=== PATIENT | female | born 2000 | race Caucasian/White ===

== ENCOUNTER 2024-12-30 06:48 | Outpatient (REF) | payer OTHER, SELFPAY ==
--- OUTSIDE RECORDS SUMMARY | 2021-09-13 06:20 | XMS_ITS | Continuity of Care Document ---
Author Organization [facility] Address [address] [place] [phone] Phone Care Team Providers Care Sales Representative Publications Name Role Phone Armando Soriano MD Unavailable Unavailable Allergies, Adverse Reactions, Alerts Substance Reaction Status Criticality No Known Allergies Active No Inform ation Medications Medication Instructions Dosage Effective Dates (start - stop) Status Comments Lotemax SM 0.38 % eye gel drops instill 1 drop by ophthalmic route 3 times every day for 2 weeks into the affected eye - Active AMELIA 1. use coupon neomycin-polymyxin -dexameth 3.5 mg/mL-10,000 unit/mL-0.1% eye drops - Active GenTeal Tears Moderate 0.1 %-0.3 %-0.2 % eye drops - Active Procedures Procedure Date Intermediate eye exam, established [facility] Intermediate eye exam, established [facility] Advance Directives Directive Yes / No Effective Date File Name No Information Encounters Encounter Description Practice Location Reason(s) For Visit Diagnoses Date Provider Providers Copied on Encounter [facility], [address] [place] [address], [id number], [place] tel:[phone] [facility] Dry Eye f/u (chief complaint) Dry Eye - Bilateral 2 Bo Roberts. [facility], [facility], [address] [place] [address], [id number], [place]. tel:[phone] [facility], [address] [facility], [place], [place], [id number], [place] tel:[phone] [facility] dry eye (chief complaint) Dry Eye - Bilateral 2 Soriano Armando. [facility], [facility], [address] [facility], [place], [place], [id number], [place]. tel:[phone] Family History Family Member Type Diagnosis Age At Onset Maternal grandfather Problem (finding) degenerative di sorder of macula Maternal grandmother Problem (finding) degenerative di sorder of macula Maternal grandfather Problem (finding) glaucoma Maternal grandmother Problem (finding) glaucoma Payers Payer name Insurance type Covered alliance party ID Authoriza precious(s) Gabriel POS BL [id number] Social History Type Description Quantity Date Captured Comments Alcohol Use Details Unknown Caffeine Use Details Unknown Tobacco Use Status No Information Smoking Status No Information Sex Female Chief Complaint And Reason For Visit From encounter dated '09/13/2021 10:20'. Dry Eye f/u (chief complaint). Description: The 21 year old female presents for evaluation of Dry Eye f/u in the right eye and left eye. It started about 2 day(s) ago. It occurs persistently. The onset was progressive. It affects OU. The symptom is constant. The condition is moderate. Patient denies flashes and floaters.3 week dry eye f/u OU. Eyes are feeling much better on current drop regimen:Drop regimen:Lotemax 1 x qd OU - feels they make her eyes more drySystane Complete PF - only uses prn, stings Genteal gtts (not PF) - 2-3 x daily OU Reason For Referral Reason For Referral No Information History Of Present Illness Encounter Date Complaint History Of Prese nt Illness Dry Eye f/u The 21 year old female presents for evaluation of Dry Eye f/u in the right eye and left eye. It started about 2 day(s) ago. It occurs persistently. The onset was progressive. It affects OU. The symptom is constant. The condition is moderate. Patient denies flashes and floaters.3 week dry eye f/u OU. Eyes are feeling much better on current drop regimen:Drop regimen:Lotemax 1 x qd OU - feels they make her eyes more drySystane Complete PF - only uses prn, stings Genteal gtts (not PF) - 2-3 x daily OU dry eye The 21 year old female presents for evaluation of dry eye in the right eye and left eye. It started about 1 It occurs with no pattern. The onset was gradual. It affects OU. The symptom is frequent. The condition is moderate. The condition is described as blurring.Pt saw Dr. Zambrano one week ago for routine eye exam, Dr. Zambrano said that her eyes were too dry to do an exam. Pt used neomycin OU QID for 5 days, Dr. Zambrano had her start systane complete OU QID, pt said they made her eyes burn and she switched to genteal moderate OU QID, pt says new ATs help. Pt says she had redness and irritation OS for a few days before seeing Dr. Zambrano. Pt has no h/o dry eye syndrome. Pt wears glasses, used to wear contacts but has not for several years. C/o some blurry vision. Functional Status Date Functional Assessmen t No Information Instructions Date Instruction Additional Infor mation Impression/Plan Related to Dry E ye - Bilateral Impression/Plan Related to Dry E ye - Bilateral Assessments Type Assessment Date assessment Dry Eye - Bilateral impression Dry eye didn't like lotemax, using systane complete pres free still longoria a little bitDiscussed plugs Patient Care Teams Name Effective Dates (start - stop) Status Members No Information
--- NOTE | ~2024-12-30 | US_ITS ---
EXAMINATION: US PELVIS CLINICAL INFORMATION: Right-sided pelvic pain x 2 months COMPARISON: None available. TECHNIQUE: Ultrasound of the pelvis is performed using both transabdominal and transvaginal transducers along with Doppler. Transvaginal imaging was attempted but painful hence not performed. FINDINGS: Uterus: The uterus is anteverted, anteflexed and measures 7.3 x 3.7 x 5.9 cm. The double wall endometrial thickness is 1.2 cm. The uterus is smooth in contour and has normal myometrial echogenicity. No visible fibroid. Adnexa: Both ovaries are visualized. There is normal color flow to the adnexa. There is no ovarian torsion. There is no pelvic ascites or fluid collection. Right ovary measures 3.7 x 2.7 x 3.0 cm. Volume 15.7 mL. There is simple anechoic cyst measuring 2.1 x 1.8 x 2.4 cm Left ovary measures 2.4 x 1.7 x 2.2 cm. Volume 4.7 mL US/US pelvic complete IMPRESSION: Unremarkable uterus. Simple cyst right ovary. Electronically signed by: Raymundo Antonio MD 12/30/2024 09:11 AM EDT
--- OUTSIDE RECORDS SUMMARY | 2024-12-30 07:01 | XMS_ITS | Clinical Summary ---
Author Organization [facility] Address [address] [facility] [address] [place] [phone] Phone Care Team Providers Care Lithopress Operator Name Role Phone Pcp, Unknown Primary Care Provider Unavailabl e Encounters Date Type Department Care Team Description 11/10/2024 Transcribe Orders [facility] [address] [place] [phone] Marta Pascual MD Encounter for rehabilitation (Primary Dx) from Last 3 Months Social History Tobacco Use Types Packs/Day Years Used Date Smoking Tobacco: Never Assessed Education Answer Date Recorded Are you interested in more education? Not on wesley e 11/11/2024 Are you concerned about learning? Not on file 11/11/2024 No 11/11/2024 No 11/11/2024 Digital Access Answer Date Recorded No 11/11/2024 No 11/11/2024 Reliable internet access at home? Not on file 11/11/2024 Device with a working camera? Not on file Comments Unknown Sex and Gender Information Value Date Recorded Sex Assigned at Not on file Legal Sex Female 4:00 PM EDT Gender Identity Not on file Sexual Orientation Not on file Plan of Treatment Health Maintenance Due Date Last Done Comments Adult Td,Tdap Booster 2002 DEPRESSION SCREENING 2014 SMOKING Hx and SMOKELESS TOB ACCO SCREENING 2015 HPV VACCINES (1 - 3-dose series) 2017 CHLAMYDIA SCREENING 2018 MENINGOCOCCAL VACCINES (B) ( 1 of 2 - Standard) 2018 HEPATITIS C SCREENING 2020 HIV ONE-TIME SCREENING (18-6 5 YEARS) 2020 PAP SMEAR 2023 INFLUENZA VACCINE (#1) 2024 COVID-19 VACCINE (2024-2 6 season) 2024 HEPATITIS A VACCINES Aged Out No long er eligible based on patient's age to complete this topic HIB VACCINES Aged Out No longer eligi ble based on patient's age to complete this topic MENINGOCOCCAL VACCINES (ACWY) Aged Out No longer eligible based on patient's age to complete this topic PNEUMOCOCCAL VACCINES (0-49 years) Aged Out No longer eligible based on patient's age to complete this topic Medical Devices Not on file Insurance [facility] Member Subscriber Plan / Payer ( fective 2024-Present) Name:Deanna, Kaalvin Member ID:[id number] Relation to Subscriber:Self Name:Deanna Jewelalvin Subscriber ID:[id number] Payer ID:[id number] (NAIC) Group ID:Not on file Type:PPO Address: [facility] [id number] [place] [id number] [facility] [employer] C[employer]NA WELL[employer] CIGNA WELLF[employer]ET KAVON ACE Care Teams Lithopress Operator Relationship Specialty Start Date End Date Pcp, Unknown PCP - General 11/10/24 Additional Source Comments The information contained in this document represents components of the legal health record. It is not the complete legal health record.[facility]
== END 2024-12-30 06:49 | disposition home or self-care (01) ==
LOC: HO.UMASIMG 06:48
PROVIDERS: Visit Provider Nurse Practitioner Women's Health
DX: R30.0 Dysuria (principal)
CPT/HCPCS: 76830; 76856